=== PATIENT | female | born 1930 | race Caucasian/White ===

== ENCOUNTER 2017-07-27 10:38 | Emergency (ER) | payer MEDICARE, BC ==
[2017-07-27] MEDS ORDERED: ASPIRIN 81 MG TAB.CHEW PO ONE (10:50)
[2017-07-27] MEDS ORDERED: ONDANSETRON HCL/PF 2 MG/ML VIAL ONE (10:52)
[2017-07-27] MEDS ORDERED: ASPIRIN 300 MG SUPP.RECT RC ONE ×2 (10:53→11:07)
[2017-07-27] MEDS ORDERED: CLOPIDOGREL BISULFATE 75 MG TABLET PO STA (11:07)
[2017-07-27] MEDS ORDERED: ONDANSETRON HCL/PF 2 MG/ML VIAL IV ONE (11:07)
[2017-07-27 11:08] VITALS: BP 167/67
--- NOTE | 2017-07-27 11:09 | ERNOTE ---
CARDIAC HPI - General Exam Limitations: clinical condition - History of Present Illness Initial Comments: Patient has a history of atrial fibrillation and was in the annex to have her INR drawn when she was found on the floor by lab unresponsive and without a pulse. She received about 1 minute of CPR was then found to have a pulse and agonal breathing, patient was loaded on a cart and taken to the ER. At that time patient was responding, moving air well and became more coherent. See nurses note for vitals, initial rhythm: afib, STEMI in anterior leads - Immun/Allergies/Home Medicatons Immunizations: IMMUNIZATION HX Immunizations Up to Date Yes History of Influenza Vaccine Yes Hx Pneumococcal Vaccination More Information Required Allergies/Adverse Reactions: Allergies Allergy/AdvReac Type Severity Reaction Status Date / Time trandolapril [From [facility]] Allergy Mild cough Verified 03/21/16 11:18 doxycycline Allergy Verified 03/21/16 11:18 quinine sulfate Allergy Intermediate low wbc Uncoded 03/21/16 11:18 Home Medications: Ambulatory Orders Medication Instructions Recorded Cyanocobalamin [Vitamin B-12] 1,000 mcg PO DAILY 03/05/13 Dextran 70/Hypromellose 1 drop EACHEYE Q1H PRN 03/05/13 [Artificials Tears Drops] Digoxin [Lanoxin] 0.125 mg PO DAILY 03/05/13 Losartan/Hydrochlorothiazide 1 each PO BID 03/05/13 [Losartan-Hctz 100-25 mg Tab] Metoprolol Tartrate [Lopressor] 100 mg PO QAM 03/05/13 Nitroglycerin 0.4 mg SL [id number] PRN 03/05/13 Brady-3 Fatty Acids/Fish Oil [Fish 1 each PO DAILY 03/05/13 Oil 1,000 mg Capsule] Warfarin Sodium [Coumadin] 4 mg PO [id number] 03/05/13 metFORMIN HCL [Glucophage] 500 mg PO BID 03/05/13 Metoprolol Tartrate 50 mg PO QPM 02/25/15 Warfarin Sodium [Coumadin] 2 mg PO FERRIS 02/25/15 Calcium Carbonate/Vitamin D3 1 each PO DAILY 04/04/16 [Calcium 500 + Vit D3 400 Tab] Docusate Sodium [Colace] 100 mg PO DAILY PRN 04/04/16 Fexofenadine HCl [Jessica Allergy] 180 mg PO DAILY 04/04/16 Potassium Chloride [Klor-Con M10] 10 meq PO QPM 04/04/16 Potassium Chloride [Klor-Con M10] 20 meq PO QAM 04/04/16 Review of Systems - Narrative Narrative: unable to obtain - Patient's Past Medical History Patient History - Medical: Arthritis, Diabetes Type 2, Other Patient History - Cardiac/Respiratory: Atrial Fibrillation, Coronary Heart Disease Patient History - Cancer: No Hx of Cancer Patient History - Surgical Procedures: Appendectomy, Cholecystectomy, T & A, Other - Immunizations Immunizations Up to Date: Yes Hx Pneumococcal Vaccination: More Information Required to Determine History of Influenza Vaccine: Yes CP Exam - Physical Exam General Appearance: Present: WD/WN, anxious Eyes, Ears, Nose, Throat Exam: Present: pharynx normal Respiratory: Present: lungs clear, normal breath sounds, other - tender over sternum (post CPR) Cardiovascular/Chest: Present: normal peripheral pulses, irregularly irregular Gastrointestinal/Abdominal: Present: soft. Absent: distended Extremity: Present: no pedal edema Neurologic: Present: alert Skin Exam: Present: normal color, warm/dry ED Progress - PROGRESS/REASSESSMENT Progress Note-Subjective: 07/27/17 10:48 patient alert and taking discussed with Dr Sierra (ERP at [facility] [place]), accepted patient for transfer aspirin and plavix, no TNKase 07/27/17 10:53 patient vomiting, will give rectal aspirin - VITAL SIGNS Patient's Vital Signs:: I have reviewed the patient's vital signs. - RESULTS AND ORDERS Patient's Lab Results:: I have reviewed the patient's lab results. - EKG EKG #1 EKG: STEMI - anterior leads, atrial fibrillation EKG Read: Interp. by me Departure - Departure Clinical Impression: STEMI (ST elevation myocardial infarction) Qualifiers: Involved coronary artery: unspecified coronary artery Qualified Code(s): I21.3 - ST elevation (STEMI) myocardial infarction of unspecified site Disposition: [facility] Condition: Stable
[2017-07-27 11:22] LABS: Hematocrit 36.1 % (37.0-47.0); Hemoglobin 11.9 gm/dL (12.5-16.0); Mean Cell Volume 96.3 fl (78-100); Mean Corpuscular Hemoglobin 31.7 pg (27-31); Red Blood Count 3.75 M/mm3 (4.2-5.4); White Blood Count 17.4 K/mm3 (4.0-10.5)
[2017-07-27 11:25] LABS: Platelet Count 340 K/mm3 (150-450)
[2017-07-27 11:26] LABS: Total Cells Counted 100
[2017-07-27 11:27] LABS: Atypical (Reactive) Lymph 2 % (0-2); Band 3 % (0-2.0); Eosinophil 3 % (0-3); Lymphocyte 41 % (20-51); Monocyte 1 % (0-9); Neutrophil 50 % (42-75); Neutrophil # 8.7 K/mm3 (1.3-6.0); Spherocyte 2+
[2017-07-27 11:28] LABS: Anisocytosis 2+; Platelet Estimate Normal (NORMAL)
[2017-07-27 11:30] LABS: ALT 51 U/L (19-67); AST 50 U/L (0-48); Alkaline Phosphatase * 59 U/L (50-170); Anion Gap 17.5 mmol/L (6.8-13.8); BUN/Creatinine Ratio 15.2 (9.0-21.6); Bilirubin, Total 0.9 mg/dL (0.0-1.1); Blood Urea Nitrogen 28 mg/dL (3-23); Ca. Corrected For Albumin 8.5 mg/dL (8.4-10.2); Calcium * 8.8 mg/dL (7.9-10.9); Chloride 102 mmol/L (97-106); Glucose * 234 mg/dL (70-110); Potassium 4.5 mmol/L (3.4-4.6); Sodium 139 mmol/L (132-142); Troponin I Less than 0.017 ng/ml (0.00-0.10)
== END 2017-07-27 10:54 | disposition short-term general hospital (02) ==
LOC: ER 10:38
PROC: 5A12012 Performance of Cardiac Output, Single, Manual (ICD-10-PCS; principal; 2017-07-27)
DX: I21.3 ST elevation (STEMI) myocardial infarction of unspecified site (principal)
CPT/HCPCS: 36415; 80053; 84484; 85025; 85730; 92950; 93005; 96374; 99284; J2405